=== PATIENT | female | born 1940 | race Caucasian/White ===

== ENCOUNTER → 2018-06-28 | Outpatient (CLI) | payer OTHER | LOC: M.ULTRA 06-27 10:02 | DX: N83.292 Other ovarian cyst, left side (principal); N85.8 Other specified noninflammatory disorders of uterus; J84.10 Pulmonary fibrosis, unspecified; K59.00 Constipation, unspecified; M41.85 Other forms of scoliosis, thoracolumbar region; M51.36 Other intervertebral disc degeneration, lumbar region ==